=== PATIENT | male | born 1995 | race Two or more races ===

== ENCOUNTER 2020-10-02 17:50 | Emergency (ER) | payer OTHER ==
[~2020-10-02] VITALS: Ht 177.8 cm; Wt 78.5 kg
[2020-10-02] MEDS ORDERED: PREVACID30 MG PO (19:08)
== END 2020-10-02 19:32 | disposition home or self-care (01) ==
LOC: FSED 18:21
DX: R10.13 Epigastric pain (principal); K29.00 Acute gastritis without bleeding; F17.210 Nicotine dependence, cigarettes, uncomplicated
CPT/HCPCS: 80048; 80076; 81003; 85025; 99284